=== PATIENT | male | born 2000 | race Caucasian/White ===

== ENCOUNTER 2019-05-12 14:23 | Emergency (ER) | payer OTHER ==
[~2019-05-12] VITALS: Ht 172.7 cm; Wt 88.9 kg
== END 2019-05-12 19:40 | disposition home or self-care (01) ==
LOC: ER 14:23
DX: N50.1 Vascular disorders of male genital organs (principal); N43.40 Spermatocele of epididymis, unspecified

== ENCOUNTER 2025-07-03 10:29 | Emergency (ER) | payer OTHER ==
[~2025-07-03] VITALS: Ht 170.2 cm; Wt 90.7 kg
[2025-07-03 12:52] LABS: BASO % 0.7 % (0.1-1.2); EOS # 0.28 (0.04-0.54); EOS % 3.2 % (0.7-7.0); LYMPH # 2.48 (1.18-3.74); LYMPH % 28.6 % (19.3-53.1); MEAN PLATELET VOLUME 10.10 fl (9.4-12.4); MONO # 0.55 (0.24-0.82); MONO % 6.3 % (4.7-12.5); NEUT # 5.28 (1.56-6.13); NEUT % 60.9 % (34.0-71.1); RED CELL DISTRIBUTION WIDTH 13.1 % (11.6-14.4)
[2025-07-03 13:10] LABS: ALT/SGPT 49.0 U/L (12-78); AST/SGOT 61.0 U/L (15-37); BILIRUBIN TOTAL 0.42 mg/dL (0.3-1.2); BUN CREA RATIO 17.0 (7.0-25.0); CREATININE SERUM 0.88 mg/dL (0.70-1.30); GFR 103.88; GLOBULINA 3.9 G/DL (2.4-3.5); GLUCOSE FASTING 87.0 mg/dL (65-100); OSMOLALITY SERUM 281.0 MOSM/KG (275-295)
== END 2025-07-03 15:10 | disposition home or self-care (01) ==
LOC: ER 10:29
PROVIDERS: Emergency Medicine
DX: J40 Bronchitis, not specified as acute or chronic (principal)